=== PATIENT | female | born 1990 | race Caucasian/White ===

== ENCOUNTER → 2016-08-06 | Outpatient (CLI) | payer OTHER ==
--- NOTE | 2016-08-06 14:49 | KCIC ---
CHEST, TWO VIEWS, 08/06/2016: History: Preop evaluation, cerebral palsy No previous chest radiographs are available at this time for comparison purposes. 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 The heart size and pulmonary vascularity are normal. No pulmonary infiltrates are seen. There is no evidence of pleural fluid. The stomach is moderately distended with fluid and gas. IMPRESSION: No acute cardiopulmonary abnormality is detected. Electronically signed by: Stanley Harris MD (Aug 06, 2016 14:48:17)
== END | disposition home or self-care (01) ==
LOC: KCIC 11:02
PROVIDERS: ATTEND Family Medicine
DX: G80.9 Cerebral palsy, unspecified (principal)
CPT/HCPCS: 71020